=== PATIENT | male | born 1990 | race African-American/Black ===

== ENCOUNTER 2017-05-04 22:56 | Emergency (ER) | payer BC ==
[~2017-05-04] VITALS: Ht 185.4 cm; Wt 136.1 kg
--- NOTE | 2017-05-04 23:14 | PHYS DOC ---
Adult General Chief Complaint Chief Complaint: ABDOMINAL PAIN HPI HPI Patient is a 26 year old male presents to the emergency department with intermittent epigastric discomfort for 4 days. He describes the discomfort as "something sitting there like undigested food". Patient states that sometimes belching makes it better. He states he often feels a gnawing type hunger that is not relieved with food. He does not believe that food makes it better or worse. He has no associated nausea, vomiting or diarrhea. No shortness breath, chest pain. Review of Systems Review of Systems Constitutional: Denies fever or chills [] Eyes: Denies change in visual acuity, redness, or eye pain [] HENT: Denies nasal congestion or sore throat [] Respiratory: Denies cough or shortness of breath [] Cardiovascular: no chest pain, no palpitations, no edema GI: Epigastric discomfort without nausea, vomiting, diarrhea : Denies dysuria or hematuria [] Musculoskeletal: Denies back pain or joint pain [] Integument: Denies rash or skin lesions [] Neurologic: Denies headache, focal weakness or sensory changes [] Endocrine: Denies polyuria or polydipsia [] Current Medications Current Medications Current Medications Medications (Trade) Dose Ordered Sig/Holly Start Time Stop Time Status Last Admin Dose Admin Multi-Ingredient Mouthwash/Gargle (Gi Cocktail Single Dose) 15 ml 1X ONCE 05/04/17 23:15 05/04/17 23:16 DC 05/04/17 23:18 15 ML Allergies Allergies Allergies Coded Allergies Type Severity Reaction Last Updated Verified No Known Drug Allergies 05/04/17 No Physical Exam Physical Exam Constitutional: Well developed, well nourished, no acute distress, non-toxic appearance. [] HENT: Normocephalic, atraumatic, bilateral external ears normal, oropharynx moist,posterior pharynx without erythema, no oral exudates, nose normal. [] Eyes: PERRLA, EOMI, conjunctiva normal, no discharge. [] Neck: Normal range of motion, no tenderness, supple, no stridor. [] Cardiovascular:Heart rate regular rhythm, no murmur [] Lungs & Thorax: Bilateral breath sounds clear to auscultation [] Abdomen: Bowel sounds normal, soft, tender to palpate epigastric region. Skin: Warm, dry, no erythema, no rash. [] Back: No tenderness, no CVA tenderness. [] Extremities: No tenderness, no cyanosis, no clubbing, ROM intact, no edema. [] Neurologic: Alert and oriented X 3, normal motor function, normal sensory function, no focal deficits noted. [] Current Patient Data Vital Signs Vital Signs Date Time Temp Pulse Resp B/P (MAP) Pulse Ox O2 Delivery O2 Flow Rate FiO2 05/04/17 23:00 99.0 87 16 189/94 (125) 95 Room Air 99.0 EKG EKG [] Radiology/Procedures Radiology/Procedures [] Course & Med Decision Making Course & Med Decision Making Pertinent Labs and Imaging studies reviewed. (See chart for details) []Reevaluation: Patient reports that he has relief of symptoms after drinking the GI cocktail. Discussed with him plan for discharge home with prescriptions for Carafate, Pepcid and recommend brat diet, cessation of alcohol, tobacco, marijuana. Patient in agreement with this plan and verbalizes understanding. He is returning emergency department if symptoms or concerns or worsening of current condition. Dragon Disclaimer Dragon Disclaimer This electronic medical record was generated, in whole or in part, using a voice recognition dictation system. Departure Departure Impression: Primary Impression: Gastritis Disposition: 01 HOME, SELF-CARE Condition: STABLE Referrals: REDD KIMBALL MD (PCP) Patient Instructions: Diet for Gastroesophageal Reflux Disease, Adult, Gastritis, Adult Scripts Famotidine (PEPCID) 20 Mg Tablet 20 MG PO BID, #60 TAB Prov: PAIGE WRIGHT APRN 05/04/17 Sucralfate (CARAFATE) 1 Gm Tablet 1 TAB PO QID, #120 TAB 1 Refill Prov: PAIGE WRIGHT APRN 05/04/17 Problem Qualifiers Primary Impression: Gastritis Gastritis type: unspecified gastritis Chronicity: acute Gastritis bleeding : without bleeding Qualified Codes: K29.00 - Acute gastritis without bleeding PAIGE WRIGHT APRN May 04, 2017 23:14
[2017-05-04] MEDS ORDERED: LIDO:MAALOX:DONNATAL 1:1:1 15 ML SINGLE DOSE SWSW ONE (23:15)
[2017-05-04] MEDS ORDERED: SUCR1TAB35 PO (23:40)
[2017-05-04] MEDS ORDERED: FAMO-63 PO (23:40)
[2017-05-04 23:51] VITALS: BP 152/82
== END 2017-05-04 23:52 | disposition home or self-care (01) ==
LOC: ER 22:56
DX: K29.00 Acute gastritis without bleeding (principal)
CPT/HCPCS: 99283

== ENCOUNTER 2018-01-14 14:26 | Emergency (ER) | payer BC | END 2018-01-14 15:40 | disposition home or self-care (01) | LOC: ER 14:26 | DX: R19.7 Diarrhea, unspecified (principal); I10 Essential (primary) hypertension | CPT/HCPCS: 99282 ==